=== PATIENT | female | born 1965 | race Caucasian/White ===

== ENCOUNTER 2024-08-16 13:23 | Outpatient (CLI) | payer BC ==
[~2024-08-16 13:23] MED LIST: barium sulfate 340gm for oral suspension 1 BOTTLE SUSP.RECON PO ONE
== END 2024-08-16 23:59 | disposition home or self-care (01) ==
LOC: RAD 13:23
PROVIDERS: ATTEND Physician Assistant
DX: R13.19 Other dysphagia (principal)
CPT/HCPCS: 74220